=== PATIENT | male | born 1990 | race American Indian/Alaskan Native ===

== ENCOUNTER 2021-05-18 17:41 | Emergency (ER) | payer SELFPAY ==
--- NOTE | 2021-05-18 19:40 | Emergency Department Report ---
ED ENT HPI - General Chief complaint: Sore Throat Stated complaint: SORE THROAT FEVER Time Seen by Provider: 05/18/21 19:16 Source: patient Mode of arrival: Ambulatory Limitations: No Limitations - History of Present Illness Initial comments: This is a 30-year-old male nontoxic, well nourished in appearance, no acute signs of distress presents to the ED with c/o of sore throat x 2 days. Patient describes sore throat as swallowing razer blades. Patient denies any fever, chills, headache, stiff neck, nausea, vomiting, chest pain, shortness of breath, numbness or tingling. Patient denies any drooling or hoarseness. Patient denies any allergies or significant past medical history. MD complaint: sore throat -: days(s) Location: throat Severity: mild Severity scale (0 -10): 8 Quality: aching Consistency: constant Improves with: none Worsens with: swallowing Associated Symptoms: pain with swallowing, sore throat. denies: fever, cough, gum swelling, toothache, tinnitus, hearing loss, discharge from ear, rhinorrhea - Related Data Previous Rx's Medication Instructions Recorded Last Taken Type Fluticasone [Flonase] 1 spray NS QDAY #1 bottle 01/22/15 Unknown Rx Ibuprofen [Motrin] 800 mg PO Q8H PRN #30 tablet 01/22/15 Unknown Rx Indomethacin 50 mg PO TID #30 capsule 05/06/15 Unknown Rx Acetamin/Codeine 120-12Mg/5 ml 5 ml PO TID PRN #80 ml 06/08/15 Unknown Rx [Tylenol/Codeine 120-12 mg/5 ml] Albuterol Mdi (or & Nicu Only) 1 - 2 puff IH QID #1 inha 06/08/15 Unknown Rx [ProAir HFA Inhaler] Azithromycin [Zithromax Z-STEVEN] 250 mg PO DAILY #6 tablet 06/08/15 Unknown Rx predniSONE [Deltasone] 20 mg PO QDAY #6 tab 06/08/15 Unknown Rx Amoxicillin [Amoxicillin TAB] 875 mg PO BID #20 tablet 09/08/15 Unknown Rx Fluticasone [Flonase] 1 spray NS QDAY #1 bottle 09/08/15 Unknown Rx Ibuprofen [Motrin 800 MG tab] 800 mg PO Q8HR PRN #30 tablet 09/08/15 Unknown Rx guaiFENesin/CODEINE [Robitussin AC] 5 ml PO Q6HR PRN #120 oral.liqd 09/08/15 Unknown Rx Amoxicillin [Amoxicillin TAB] 875 mg PO BID #20 tablet 05/18/21 Unknown Rx Naproxen 500 mg PO Q12H PRN #12 tablet 05/18/21 Unknown Rx Nystas/Diphen/Xyl Visc/Mylanta 15 ml MM Q6H PRN 5 Days #1 bottle 05/18/21 Unknown Rx [Magic Mouthwash] Allergies Allergy/AdvReac Type Severity Reaction Status Date / Time No Known Allergies Allergy Verified 06/08/15 11:18 ED Dental HPI - General Chief complaint: Sore Throat Stated complaint: SORE THROAT FEVER Time Seen by Provider: 05/18/21 19:16 Source: patient Mode of arrival: Ambulatory Limitations: No Limitations - Related Data Previous Rx's Medication Instructions Recorded Last Taken Type Fluticasone [Flonase] 1 spray NS QDAY #1 bottle 01/22/15 Unknown Rx Ibuprofen [Motrin] 800 mg PO Q8H PRN #30 tablet 01/22/15 Unknown Rx Indomethacin 50 mg PO TID #30 capsule 05/06/15 Unknown Rx Acetamin/Codeine 120-12Mg/5 ml 5 ml PO TID PRN #80 ml 06/08/15 Unknown Rx [Tylenol/Codeine 120-12 mg/5 ml] Albuterol Mdi (or & Nicu Only) 1 - 2 puff IH QID #1 inha 06/08/15 Unknown Rx [ProAir HFA Inhaler] Azithromycin [Zithromax Z-STEVEN] 250 mg PO DAILY #6 tablet 06/08/15 Unknown Rx predniSONE [Deltasone] 20 mg PO QDAY #6 tab 06/08/15 Unknown Rx Amoxicillin [Amoxicillin TAB] 875 mg PO BID #20 tablet 09/08/15 Unknown Rx Fluticasone [Flonase] 1 spray NS QDAY #1 bottle 09/08/15 Unknown Rx Ibuprofen [Motrin 800 MG tab] 800 mg PO Q8HR PRN #30 tablet 09/08/15 Unknown Rx guaiFENesin/CODEINE [Robitussin AC] 5 ml PO Q6HR PRN #120 oral.liqd 09/08/15 Unknown Rx Amoxicillin [Amoxicillin TAB] 875 mg PO BID #20 tablet 05/18/21 Unknown Rx Naproxen 500 mg PO Q12H PRN #12 tablet 05/18/21 Unknown Rx Nystas/Diphen/Xyl Visc/Mylanta 15 ml MM Q6H PRN 5 Days #1 bottle 05/18/21 Unknown Rx [Magic Mouthwash] Allergies Allergy/AdvReac Type Severity Reaction Status Date / Time No Known Allergies Allergy Verified 06/08/15 11:18 ED Review of Systems ROS: Stated complaint: SORE THROAT FEVER Other details as noted in HPI Comment: All other systems reviewed and negative Constitutional: denies: chills, fever Eyes: denies: eye pain, eye discharge, vision change ENT: throat pain. denies: ear pain, dental pain, hearing loss, epistaxis, congestion Respiratory: denies: cough, shortness of breath, wheezing Cardiovascular: denies: chest pain, palpitations Endocrine: no symptoms reported Gastrointestinal: denies: abdominal pain, nausea, diarrhea Genitourinary: denies: urgency, dysuria Musculoskeletal: denies: back pain, joint swelling, arthralgia Skin: denies: rash, lesions Neurological: denies: headache, weakness, paresthesias Psychiatric: denies: anxiety, depression Hematological/Lymphatic: denies: easy bleeding, easy bruising ED Past Medical Hx - Past Medical History Previous Medical History?: Yes Hx Hypertension: No Hx Heart Attack/AMI: No Hx Deep Vein Thrombosis: No Hx Asthma: No Hx HIV: No - Social History Smoking Status: Current Every Day Smoker Substance Use Type: None - Medications Home Medications: Home Medications Medication Instructions Recorded Confirmed Last Taken Type Fluticasone [Flonase] 1 spray NS QDAY #1 bottle 01/22/15 Unknown Rx Ibuprofen [Motrin] 800 mg PO Q8H PRN #30 tablet 01/22/15 Unknown Rx Indomethacin 50 mg PO TID #30 capsule 05/06/15 Unknown Rx Acetamin/Codeine 120-12Mg/5 ml 5 ml PO TID PRN #80 ml 06/08/15 Unknown Rx [Tylenol/Codeine 120-12 mg/5 ml] Albuterol Mdi (or & Nicu Only) 1 - 2 puff IH QID #1 inha 06/08/15 Unknown Rx [ProAir HFA Inhaler] Azithromycin [Zithromax Z-STEVEN] 250 mg PO DAILY #6 tablet 06/08/15 Unknown Rx predniSONE [Deltasone] 20 mg PO QDAY #6 tab 06/08/15 Unknown Rx Amoxicillin [Amoxicillin TAB] 875 mg PO BID #20 tablet 09/08/15 Unknown Rx Fluticasone [Flonase] 1 spray NS QDAY #1 bottle 09/08/15 Unknown Rx Ibuprofen [Motrin 800 MG tab] 800 mg PO Q8HR PRN #30 tablet 09/08/15 Unknown Rx guaiFENesin/CODEINE [Robitussin AC] 5 ml PO Q6HR PRN #120 oral.liqd 09/08/15 Unknown Rx Amoxicillin [Amoxicillin TAB] 875 mg PO BID #20 tablet 05/18/21 Unknown Rx Naproxen 500 mg PO Q12H PRN #12 tablet 05/18/21 Unknown Rx Nystas/Diphen/Xyl Visc/Mylanta 15 ml MM Q6H PRN 5 Days #1 bottle 05/18/21 Unknown Rx [Magic Mouthwash] ED Physical Exam - General Limitations: No Limitations General appearance: alert, in no apparent distress - Head Head exam: Present: atraumatic, normocephalic - Eye Eye exam: Present: normal appearance - Expanded ENT Exam Expanded Ear exam: Present: normal external inspection Mouth exam: Present: normal external inspection. Absent: drooling, trismus, muffled voice, tongue normal, tongue elevation, laceration Teeth exam: Present: normal inspection Throat exam: Positive: tonsillar erythema, other (Uvula midline. No tonsillar abscess or swelling.). Negative: tonsillomegaly, tonsillar exudate, R peritonsillar mass, L peritonsillar mass - Neck Neck exam: Present: normal inspection, full ROM. Absent: lymphadenopathy - Respiratory Respiratory exam: Absent: respiratory distress - Cardiovascular Cardiovascular Exam: Present: regular rate - Extremities Exam Extremities exam: Present: full ROM - Back Exam Back exam: Present: full ROM - Neurological Exam Neurological exam: Present: alert, oriented X3, normal gait - Psychiatric Psychiatric exam: Present: normal affect, normal mood - Skin Skin exam: Present: warm, dry, intact, normal color. Absent: rash ED Course Vital Signs 05/18/21 19:06 Temperature 98.3 F Pulse Rate 66 Respiratory 18 Rate Blood Pressure 109/57 O2 Sat by Pulse 98 Oximetry - Reevaluation(s) Reevaluation #1: 05/18/21 19:39 Patient is speaking in full sentences with no signs of distress noted. ED Medical Decision Making - Medical Decision Making This is a 30-year-old male that presents with strep throat. Patient is stable was examined by me. Positive strep test. Patient is notified of the results with no questions noted by the patient. There is no drooling. No tonsillar abscess noted. Uvula is midline. Exam does not show a tonsillar abscess. Vital signs are stable. Patient is not febrile and normal heart rate. Patient was instructed to Follow-up with a primary care doctor in 3-5 days or if symptoms worsen and continue return to emergency room as soon as possible. At time of discharge, the patient does not seem toxic or ill in appearance. No acute signs of distress noted. Patient agrees to discharge treatment plan of care. No further questions noted by the patient. Critical care attestation.: If time is entered above; I have spent that time in minutes in the direct care of this critically ill patient, excluding procedure time. ED Disposition Clinical Impression: Strep throat Disposition: HOME / SELF CARE / HOMELESS Is pt being admited?: No Does the pt Need Aspirin: No Condition: Stable Instructions: Strep Throat, Adult Additional Instructions: Follow-up with a primary care doctor in 3-5 days or if symptoms worsen and continue return to emergency room as soon as possible. Prescriptions: Amoxicillin [Amoxicillin TAB] 875 mg PO BID #20 tablet Nystas/Diphen/Xyl Visc/Mylanta [Magic Mouthwash] 15 ml MM Q6H PRN 5 Days #1 bottle PRN Reason: Sore Throat Naproxen 500 mg PO Q12H PRN #12 tablet PRN Reason: Pain , Severe (7-10) Referrals: PRIMARY CAREMD [Referring] - 3-5 Days PALAK VALENTIN MD [Staff Physician] - 3-5 Days Forms: Work/School Release Form(ED) Time of Disposition: 21:15
[2021-05-18 21:32] VITALS: BP 102/58
== END 2021-05-18 21:56 | disposition home or self-care (01) ==
LOC: ED 17:41
DX: J02.0 Streptococcal pharyngitis (principal); B95.0 Streptococcus, group A, as the cause of diseases classified elsewhere; F17.200 Nicotine dependence, unspecified, uncomplicated; Z98.890 Other specified postprocedural states; Z79.899 Other long term (current) drug therapy
CPT/HCPCS: 87430; 99283